=== PATIENT | female | born 1970 | race Caucasian/White ===

== ENCOUNTER 2021-04-06 14:58 | Outpatient (REF) | payer OTHER, SELFPAY | END 2021-04-06 14:59 | disposition home or self-care (01) | LOC: HO.HMGCLDS 14:58 | PROVIDERS: PCP Internal Medicine; Visit Provider Internal Medicine | DX: Z20.822 Contact with and (suspected) exposure to COVID-19 (principal) | CPT/HCPCS: C9803; U0003; U0005 ==

== ENCOUNTER 2021-05-06 12:44 | Outpatient (REF) | payer OTHER, SELFPAY | END 2021-05-06 12:45 | disposition home or self-care (01) | LOC: HO.HMGCLDS 12:44 | PROVIDERS: Visit Provider Internal Medicine | DX: Z20.822 Contact with and (suspected) exposure to COVID-19 (principal) | CPT/HCPCS: C9803; U0003; U0005 ==

== ENCOUNTER → 2023-02-06 08:35 | Outpatient (BNVA) | payer MEDICAID, SELFPAY | PROVIDERS: PCP Family Medicine; Visit Provider Psychiatry & Neurology Neurology | DX: R41.89 Other symptoms and signs involving cognitive functions and awareness (principal); R46.89 Other symptoms and signs involving appearance and behavior; Z87.828 Personal history of other (healed) physical injury and trauma | CPT/HCPCS: 99202 ==

== ENCOUNTER 2023-10-01 07:34 | Outpatient (AMB) | payer MEDICAID, SELFPAY ==
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
[2023-10-01 07:44] VITALS: BP 122/80; PULSE 78; RESP 16; O2SAT 98; BMI 32.1
== END 2023-10-01 08:04 | disposition home or self-care (01) ==
PROVIDERS: PCP Family Medicine; Visit Provider Psychiatry & Neurology Neurology
DX: R41.89 Other symptoms and signs involving cognitive functions and awareness (principal); R46.89 Other symptoms and signs involving appearance and behavior; Z87.828 Personal history of other (healed) physical injury and trauma
CPT/HCPCS: 99214

== ENCOUNTER → 2023-10-01 07:34 | Outpatient (BNVA) | payer MEDICAID, SELFPAY | PROVIDERS: PCP Family Medicine; Visit Provider Psychiatry & Neurology Neurology | DX: R41.89 Other symptoms and signs involving cognitive functions and awareness (principal); R46.89 Other symptoms and signs involving appearance and behavior; Z87.828 Personal history of other (healed) physical injury and trauma | CPT/HCPCS: 99212 ==

== ENCOUNTER 2023-10-22 19:45 | Outpatient (REF) | payer MEDICAID, SELFPAY ==
--- NOTE | ~2023-10-22 | MR_ITS ---
EXAMINATION: MR BRAIN WITHOUT CONTRAST CLINICAL INFORMATION: Cognitive, behavioral changes COMPARISON: None. TECHNIQUE: MRI of the brain was obtained using routine sequences without contrast. FINDINGS: Encephalomalacia/gliosis in the right greater than left anterior frontal lobes and left anterior temporal lobe. There is no reduced diffusion to suggest acute infarct. Susceptibility weighted sequence is within normal limits. No mass effect, extra-axial collection, midline shift, or other herniation. Generalized cerebral volume loss with associated ventricular and sulcal prominence. Intracranial flow voids are preserved. The paranasal sinuses are well-aerated. The mastoid air cells are clear. The bone marrow signal is normal. MR/MR head/brain wo con IMPRESSION: Encephalomalacia/gliosis in the right greater left anterior frontal lobes and left anterior temporal lobe may be a sequela of prior traumatic injury.
== END 2023-10-22 19:46 | disposition home or self-care (01) ==
LOC: HO.MRI 19:45
PROVIDERS: PCP Family Medicine; Visit Provider Psychiatry & Neurology Neurology
DX: R41.89 Other symptoms and signs involving cognitive functions and awareness (principal); R46.89 Other symptoms and signs involving appearance and behavior
CPT/HCPCS: 70551

== ENCOUNTER 2024-04-17 07:49 | Outpatient (AMB) | payer MEDICAID, SELFPAY ==
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
[2024-04-17 07:51] VITALS: BP 104/68; PULSE 80; RESP 16; O2SAT 98; BMI 32.2
== END 2024-04-17 08:16 | disposition home or self-care (01) ==
PROVIDERS: PCP Family Medicine; Visit Provider Psychiatry & Neurology Neurology
DX: R41.89 Other symptoms and signs involving cognitive functions and awareness (principal); R46.89 Other symptoms and signs involving appearance and behavior; Z87.828 Personal history of other (healed) physical injury and trauma
CPT/HCPCS: 99214; G2211

== ENCOUNTER → 2024-04-17 07:49 | Outpatient (BNVA) | payer MEDICAID, SELFPAY | PROVIDERS: PCP Family Medicine; Visit Provider Psychiatry & Neurology Neurology | DX: R41.89 Other symptoms and signs involving cognitive functions and awareness (principal); R46.89 Other symptoms and signs involving appearance and behavior; Z87.820 Personal history of traumatic brain injury | CPT/HCPCS: 99212 ==